=== PATIENT | male | born 1955 | race African-American/Black ===

== ENCOUNTER 2016-08-10 12:41 | Emergency (ER) | payer MEDICARE ==
[2016-08-10 13:18] VITALS: BP 127/81
[2016-08-10] MEDS ORDERED: NORCO 5/325 PO ONE (13:22)
[2016-08-10] MEDS ORDERED: BOOSTRIX IM ONE (13:22)
[2016-08-10] MEDS ORDERED: NACL 0.9% 1000 ML IR ONE (13:23)
[2016-08-10] MEDS ORDERED: TRIPLE ANTIBIOTIC TP ONE (13:24)
[2016-08-10] MEDS ORDERED: NACL 0.9% 500 ML IR ONE (13:38)
--- NOTE | 2016-08-10 23:08 | Emergency Department Report ---
Entered by YURY JOHNSON, acting as scribe for NATHANIEL TIRADO PA. - General Chief Complaint: Wound/Laceration Stated Complaint: RT HAND DEEP LACERATION Source: patient Mode of arrival: Ambulatory Limitations: No Limitations - History of Present Illness Initial Comments: 61 y/o male with no significant PMHx presents to the ED c/o a laceration to left hand that began today. Patient states he was cutting down a tree with a machete, missed the tree, and subsequently received a laceration to left thumb. Rates associated pain a 4/10 in severity, which he describes as aching in quality. Aggravated with nothing and alleviated with nothing. Denies fever, chills, nausea, vomiting, numbness and tingling. Not UTD with tetanus. NKDA. -: This afternoon Location: other (left thumb) Extremity Location: Left: Hand (thumb) Place: home Patient Tetanus UTD: No Context: accidental Associated Symptoms: pain. denies: loss of feeling/numbness, suspect foreign body present, unable to move injured part, weakness followed by dizziness, nausea/vomiting, fever - Related Data Previous Rx's Medication Instructions Recorded Last Taken Type Cephalexin [Keflex] 500 mg PO Q12HR #10 cap 08/10/16 Unknown Rx Naproxen [Naprosyn] 500 mg PO BID #30 tablet 08/10/16 Unknown Rx Neomycn/Baci Zn/Pmyx Bs/Pramox 1 applic TP TID #1 tube 08/10/16 Unknown Rx [Triple Antibiotic Plus Ointmnt] Allergies Allergy/AdvReac Type Severity Reaction Status Date / Time No Known Allergies Allergy Unverified 08/10/16 12:58 ED Review of Systems Comment: All other systems reviewed and negative Constitutional: no symptoms reported. denies: chills, fever Respiratory: no symptoms reported. denies: cough, orthopnea, shortness of breath, SOB with exertion, SOB at rest, stridor Cardiovascular: denies: chest pain, palpitations Endocrine: no symptoms reported Gastrointestinal: denies: nausea, vomiting Musculoskeletal: denies: back pain Skin: other (laceration on left thumb). denies: rash, lesions Neurological: denies: headache, numbness, other (tingling) ED Past Medical Hx - Past Medical History Previous Medical History?: No - Surgical History Past Surgical History?: No - Social History Smoking Status: Never Smoker Substance Use Type: None - Medications Home Medications: Home Medications Medication Instructions Recorded Confirmed Last Taken Type Cephalexin [Keflex] 500 mg PO Q12HR #10 cap 08/10/16 Unknown Rx Naproxen [Naprosyn] 500 mg PO BID #30 tablet 08/10/16 Unknown Rx Neomycn/Baci Zn/Pmyx Bs/Pramox 1 applic TP TID #1 tube 08/10/16 Unknown Rx [Triple Antibiotic Plus Ointmnt] ED Physical Exam - General Limitations: No Limitations General appearance: alert, in no apparent distress - Head Head exam: Present: atraumatic, normocephalic - Eye Eye exam: Present: normal appearance, EOMI Pupils: Present: normal accommodation - ENT ENT exam: Present: normal exam, mucous membranes moist - Neck Neck exam: Present: normal inspection, full ROM. Absent: tenderness, lymphadenopathy - Respiratory Respiratory exam: Present: normal lung sounds bilaterally. Absent: respiratory distress, wheezes, rales, rhonchi, stridor - Cardiovascular Cardiovascular Exam: Present: regular rate, normal rhythm, normal heart sounds. Absent: systolic murmur, diastolic murmur, rubs, gallop - GI/Abdominal GI/Abdominal exam: Present: soft, normal bowel sounds. Absent: distended - Extremities Exam Extremities exam: Present: full ROM (limited left thumb ROM due to pain), normal capillary refill. Absent: tenderness, joint swelling - Expanded Upper Extremity Exam Left Shoulder Exam: Present: normal inspection, full ROM Upper Arm exam: Present: normal inspection, full ROM Elbow exam: Present: normal inspection, full ROM Forearm Wrist exam: Present: normal inspection, full ROM Hand Wrist exam: Present: full ROM (limited left thumb ROM due to pain), tenderness, laceration (2-3 cm horizontal laceration to left thumb). Absent: swelling, abrasion, ecchymosis, deformity, crepidus, dislocation, erythema, amputation, nail avulsion, subungual hematoma Neuro motor exam: Present: wrist extension intact, thumb opposition intact, thumb IP flexion intact, thumb adduction intact, fingers 2-5 abduction intact Neurosensory exam: Present: 2-point discrimination, radial nerve intact, ulnar nerve intact, median nerve intact Vascular: Present: normal capillary refill, radial pulse (2+), brachial pulse (2 +), ulnar pulse (2+). Absent: vascular compromise, Pallo, pulse deficit radial art, pulse deficit ulnar art, pulse deficit brachial art - Back Exam Back exam: Present: normal inspection - Neurological Exam Neurological exam: Present: alert, oriented X3 - Psychiatric Psychiatric exam: Present: normal affect, normal mood - Skin Skin exam: Present: warm, dry, other (2-3 cm horizontal laceration to left thumb ). Absent: intact, rash ED Course Vital Signs 08/10/16 12:55 Temperature 98.6 F Pulse Rate 79 Respiratory 18 Rate Blood Pressure 127/81 O2 Sat by Pulse 100 Oximetry - Laceration /Wound Repair Right Posterior Proximal Finger Wound Location: upper extremity Wound Length (cm): 3 Wound's Depth, Shape: superficial, into muscle, linear Wound Explored: no foreign body removed Irrigated w/ Saline (ccs): 500 Betadine Prep?: Yes Anesthesia: 1% Lidocaine Volume Anesthetic (ccs): 4 Wound Repaired With: sutures Suture Size/Type: proline Number of Sutures: 6 Layer Closure?: No Sterile Dressing Applied?: Yes ED Medical Decision Making - Medical Decision Making 61-year-old male presents with a laceration to left hand since today ED course: Patient was given pain medication and a tetanus shot. The 3cm laceration wound was prepped and draped in sterile fashion. Anesthesia was achieved digital block of with 4mL of 1% lidocaine. The wound was irrigated with 500cc NS and explored. There were no foreign bodies The wound was reapproximated in 1 layer with 6 sutures suing with three 4-0 monofilament sutures in the dermis with interrupted sutures percutaneously. There was excellent reapproximation of the wound edges. The patient tolerated the procedure without complication. 3 cm horizontal laceration to left thumb. Discussed to return to ED 10-14 days for suture removal Discussed to follow-up for an PCP as referred. Discuss his symptoms return or worsen to return to the ED Patient states understanding and will follow instructions. Vital signs stable. Patient is in no acute distress. ED Disposition Clinical Impression: Laceration of finger Qualifiers: Encounter type: initial encounter Finger: thumb Damage to nail status: without damage Foreign body presence: without foreign body Laterality: right Qualified Code(s): S61.011A - Laceration without foreign body of right thumb without damage to nail, initial encounter Disposition: DC-01 TO HOME OR SELFCARE Is pt being admited?: No Does the pt Need Aspirin: No Condition: Stable Instructions: Suture Care (ED), Laceration (ED), Suture Removal (ED) Additional Instructions: Return to ED in 10-14 days for suture removal. Follow-up Department care physician Follow instructions as given. Prescriptions: Cephalexin [Keflex] 500 mg PO Q12HR #10 cap Naproxen [Naprosyn] 500 mg PO BID #30 tablet Neomycn/Baci Zn/Pmyx Bs/Pramox [Triple Antibiotic Plus Ointmnt] 1 applic TP TID #1 tube Referrals: ROWENA PAGE MD [Primary Care Provider] - 3-5 Days [facility] [Outside] - 3-5 Days [facility] [Outside] - 3-5 Days Forms: Accompanied Note, Work/School Release Form(ED) This documentation as recorded by the ELIZABETH martinez JASMINE,accurately reflects the service I personally performed and the decisions made by CANDIDA no OYINLOLA A, PA.
== END 2016-08-10 14:45 | disposition home or self-care (01) ==
LOC: ED 12:41
DX: S61.012A Laceration without foreign body of left thumb without damage to nail, initial encounter (principal); W26.8XXA Contact with other sharp object(s), not elsewhere classified, initial encounter; Y93.89 Activity, other specified; Y92.89 Other specified places as the place of occurrence of the external cause; Y99.8 Other external cause status
CPT/HCPCS: 90471; 90715; 99282; A6250